=== PATIENT | female | born 1995 | race African-American/Black ===

== ENCOUNTER 2017-08-25 21:18 | Emergency (ER) | payer SELFPAY ==
[~2017-08-25] VITALS: Ht 162.6 cm; Wt 98.7 kg
[2017-08-25 21:19] VITALS: BP 140/92; PULSE 80; RESP 16; TEMP 98.6; O2SAT 98
[2017-08-25] MEDS ORDERED: ZITHTAB PO (21:49)
--- NOTE | 2017-08-25 21:49 | PD ---
HPI Chief Complaint: Cold / Flu Symptoms Time Seen by Provider: 21:35 Travel History International Travel<30 days: No Contact w/Intl Traveler<30days: No Traveled to known affect area: No History of Present Illness HPI 21-year-old female here for evaluation of cough for 1 week. Patient reports that cough is productive of clear sputum, however occasionally she coughs and then vomits. She denies abdominal pain. No nausea. No fevers or chills. No hemoptysis. No dyspnea. She smokes cigarettes and marijuana. PFSH Past Medical History Medical History: Denies Significant Hx Diminished Hearing: No Tetanus Vaccination: Unknown Influenza Vaccination: No ?: Unknown LMP: 08/17/17 : 0 Past Surgical History Surgical History: No Previous Surgery Social History Alcohol Use: Yes (OCCASIONALLY) Tobacco Use: Yes Substance Use: Yes (MARIJUANA) Allergies-Medications (Allergen,Severity, Reaction): Coded Allergies: No Known Allergies (Unverified , 08/25/17) Reported Meds & Prescriptions Reported Meds & Active Scripts Active No Active Prescriptions or Reported Medications Review of Systems Except as stated in HPI: all other systems reviewed are Neg Physical Exam Narrative GENERAL: Well-developed, well-nourished, comfortable, no apparent distress. SKIN: Focused skin assessment warm/dry. HEAD: Atraumatic. Normocephalic. EYES: Pupils equal and round. No scleral icterus. No injection or drainage. ENT: No nasal bleeding or discharge. Mucous membranes pink and moist. Normal pharynx. Bilateral tympanic members and external auditory canals are normal. NECK: Trachea midline. No JVD. No nuchal rigidity. CARDIOVASCULAR: Regular rate and rhythm. No murmur appreciated. RESPIRATORY: No accessory muscle use. Clear to auscultation. Breath sounds equal bilaterally. GASTROINTESTINAL: Abdomen soft, non-tender, nondistended. MUSCULOSKELETAL: No obvious deformities. No clubbing. No cyanosis. No edema. NEUROLOGICAL: Awake and alert. No obvious cranial nerve deficits. Motor grossly within normal limits. Normal speech. PSYCHIATRIC: Appropriate mood and affect; insight and judgment normal. Data Data Last Documented VS Vital Signs Date Time Temp Pulse Resp B/P (MAP) Pulse Ox O2 Delivery O2 Flow Rate FiO2 08/25/17 21:19 98.6 80 16 140/92 (108) 98 Room Air MDM Medical Decision Making Medical Screen Exam Complete: Yes Emergency Medical Condition: Yes Differential Diagnosis Bronchitis, pneumonia, URI Narrative Course Vital signs show heart rate 80, blood pressure 140/92, pulse ox 98% on room air , oral temp of 98.6 Fahrenheit. Breath sounds are clear and equal bilaterally. She is in no respiratory distress. No wheezes, rales, or rhonchi. Patient is likely suffering from a URI/bronchitis. Since her symptoms have been going on for 1 week, she will be started on a Z-Jaya. She is stable for discharge home with further outpatient follow-up with a primary care physician this week. I will give her the information to the [facility] where she can follow-up this week. She was informed on when to return to the emergency department. She verbalizes understanding and agreement with plan. Diagnosis Primary Impression: Bronchitis Referrals: [facility] 3 days Additional Instructions: Follow-up with a primary care physician this week. Take antibiotic as prescribed. Return to the emergency department for worsening symptoms or any other concerns. Scripts Azithromycin (Zithromax Z-Jaya) 250 Mg Dspk 250 MG PO DIRECTED for Infection, #1 DSPK 0 Refills 500 MG (2 tabs) day 1, then 1 tab days 2-5. Prov: Demetri Mckeon MD 08/25/17 Disposition: 01 DISCHARGE HOME Condition: Stable Demetri Mckeon MD Aug 25, 2017 21:49
== END 2017-08-25 22:02 | disposition home or self-care (01) ==
LOC: NEPD 21:18
DX: J40 Bronchitis, not specified as acute or chronic (principal); R11.10 Vomiting, unspecified; Z72.0 Tobacco use
CPT/HCPCS: 99283